=== PATIENT | female | born 1980 | race American Indian/Alaskan Native ===

== ENCOUNTER 2016-06-11 10:07 | Emergency (ER) | payer MEDICAID, OTHER ==
[2016-06-11 10:18] VITALS: O2SAT 100
[2016-06-11] MEDS ORDERED: Sodium Chloride 0.9% 1,000 ML ONE ×2 (10:20→12:33)
--- NOTE | 2016-06-11 10:24 | C.PDOC ---
History Of Present Illness 35 y/o female presents to the ED for evaluation of diffuse abdominal pain and vomiting since the middle of the night. Family member at bedside reports "we eat a lot of fast food last night". Patient also admits to drinking alcohol, but not excessive. She reports some chills but denies fevers, diarrhea, back pain, urinary symptoms, or other complaints. Note that the patient's last normal menstrual period was 3 weeks prior. Chief Complaint (Nursing): Abdominal Pain History Per: Patient, Family History/Exam Limitations: no limitations Onset/Duration Of Symptoms: Hrs, Gradual, Persistent Current Symptoms Are (Timing): Still Present Location Of Pain/Discomfort: Diffuse Radiation Of Pain To:: None Associated Symptoms: Chills, Vomiting Recent travel outside of the [place]: No Past Medical History Reviewed: Historical Data, Nursing Documentation, Vital Signs Vital Signs: Last Vital Signs Temp 97.5 F L 06/11/16 13:54 Pulse 59 L 06/11/16 13:54 Resp 18 06/11/16 13:54 BP 133/82 06/11/16 13:54 Pulse Ox 100 06/11/16 13:54 - Medical History PMH: HTN Surgical History: No Surg Hx Family History: States: Unknown Family Hx - Social History Hx Tobacco Use: Yes (heavy smoker) Hx Alcohol Use: Yes Hx Substance Use: No Review Of Systems Constitutional: Positive for: Chills. Negative for: Fever Gastrointestinal: Positive for: Vomiting, Abdominal Pain. Negative for: Diarrhea Genitourinary: Negative for: Dysuria, Hematuria Musculoskeletal: Negative for: Back Pain Physical Exam - Physical Exam Appears: Non-toxic, No Acute Distress, Other (uncomfortable) Skin: Normal Color, Warm, Dry Head: Atraumatic, Normacephalic Eye(s): bilateral: Normal Inspection, PERRL Nose: Normal Neck: Normal ROM, Supple Chest: Symmetrical Cardiovascular: Rhythm Regular Respiratory: Normal Breath Sounds, No Rales, No Rhonchi, No Wheezing Gastrointestinal/Abdominal: Soft, Tenderness (mild epigastric), No Guarding, No Rebound Back: Normal Inspection, No CVA Tenderness Extremity: Normal ROM, No Swelling Neurological/Psych: Oriented x3, Normal Speech Gait: Steady ED Course And Treatment - Laboratory Results Result Diagrams: 06/11/16 10:46 06/11/16 10:46 Lab Interpretation: No Acute Changes O2 Sat by Pulse Oximetry: 100 (ra) Pulse Ox Interpretation: Normal - CT Scan/US Abd/pelvis Other Rad Studies (CT/US): Read By Radiologist, Radiology Report Reviewed CT/US Interpretation: Accession No. : [id number]. Patient Name / ID : FREDO DAI / [id number]. Exam Date : 06/11/2016 12:15:21 ( Approved ) . Study Comment : Sex / Age : F / 35Y. Creator : Nidia Shen MD. Dictator : Nidia Shen MD. Mental Health Aides Teacher : Passenger Interline Clerk : Nidia Shen MD. Approver2 : Report Date : 06/11/2016 12:48:16. My Comment : . PROCEDURE: CT Abdomen and Pelvis with contrast. HISTORY: epigastric abd pain, vomiting, abn labs. COMPARISON: None available. TECHNIQUE: Contrast dose: 100 mL Visipaque. Radiation dose: Total exam DLP = 476.14 mGy- cm. FINDINGS: LOWER THORAX: No visible consolidation, pleural effusion, or pneumothorax. Small hiatal hernia/distal esophageal wall thickening. LIVER: Unremarkable. GALLBLADDER AND BILE DUCTS: Unremarkable. PANCREAS: Unremarkable. SPLEEN: Unremarkable. ADRENALS: Unremarkable. KIDNEYS AND URETERS: The kidneys enhance symmetrically. No evidence of hydronephrosis or obstructing calculus. VASCULATURE: No aortic aneurysm. BOWEL: The stomach is nondistended. Lack of oral contrast limits evaluation for bowel pathology. Bowel loops appear within normal limits of caliber without evidence of obstruction. APPENDIX: The appendix appears within normal limits of caliber. No secondary signs of acute appendicitis. PERITONEUM: No significant free fluid. No definite free air. LYMPH NODES: No bulky lymphadenopathy identified. BLADDER: Unremarkable. REPRODUCTIVE: The uterus is present. BONES: Degenerative changes of the spine. OTHER FINDINGS: Small fat containing umbilical hernia. IMPRESSION: Small hiatal hernia/distal esophageal wall thickening. Small fat containing umbilical hernia. Medical Decision Making Medical Decision Making: Impression: abdominal pain and vomiting since last night. Plan: * Blood Work * Urinalysis * Urine HCG * Pepcid IVP, Toradol IVP, Zofran IVP, IV Fluids Progress: Labs reviewed and UA reviewed. Lipase was mildly elevated and given patient has epigastric tenderness and vomiting, CT ordered. patient reevaluated and continues to feel nausea, pain improved, Reglan was ordered. CT reviewed and read by Dr Cantrell showing Small hiatal hernia/distal esophageal wall thickening. Small fat containing umbilical hernia. Upon reevaluation patient is now feeling better and was able to tolerate PO. She has no fever and stable vital signs. Discussed results with patient, and copy of report was provided. Patient feels comfortable going home and will be discharged. Patient given follow up instructions. Instructed to return to ER if symptoms worsen or new symptoms arise. Disposition Counseled Patient/Family Regarding: Diagnosis, Need For Followup, Rx Given - Disposition Referrals: [facility] [Outside] [facility] [Outside] Disposition: HOME/ ROUTINE Disposition Time: 13:48 Condition: STABLE Additional Instructions: Follow up with your primary medical doctor or clinic in 2-5 days for further evaluation. Take medications as prescribed. Return to the emergency department at any time if symptoms persist or worsen. Prescriptions: Omeprazole 20 mg PO DAILY #30 capsule. Ondansetron ODT [Zofran ODT] 1 odt PO BID PRN #6 odt PRN Reason: Nausea/Vomiting Instructions: Acute Nausea and Vomiting (ED), Umbilical Hernia (ED) - POA Present On Arrival: None - Clinical Impression Clinical Impression: Vomiting, Alcoholic gastritis - PA / KILN REMOVER / Resident Statement MD/DO has reviewed & agrees with the documentation as recorded. - Scribe Statement The provider has reviewed the documentation as recorded by the Scribe (Anusha Cordoba) All medical record entries made by the Scribe were at my direction and personally dictated by me. I have reviewed the chart and agree that the record accurately reflects my personal performance of the history, physical exam, medical decision making, and the department course for this patient. I have also personally directed, reviewed, and agree with the discharge instructions and disposition.
[2016-06-11] MEDS ORDERED: Sodium Chloride 0.9% 1,000 ML IV ONE (10:30)
[2016-06-11 10:50] LABS: BASO # 0.1 K/uL (0.0-0.2); BASO % 0.6 % (0.0-2.0); EOS % 0.2 % (0.0-4.0); HEMATOCRIT 37.2 % (34.0-47.0); LYMPH # 1.5 K/uL (1.0-4.3); LYMPH % 17.8 % (20.0-40.0); MEAN CELL VOLUME 96.6 fL (81.0-99.0); MEAN CORPUSCULAR HEMOGLOBIN 32.9 pg (27.0-31.0); MEAN PLATELET VOLUME 9.3 fL (7.2-11.7); MONO # 0.3 K/uL (0.0-0.8); MONO % 3.5 % (0.0-10.0); NRBC % 0.1 % (0.0-2.0); RED CELL DISTRIBUTION WIDTH 13.4 % (11.5-14.5); WHITE BLOOD COUNT 8.6 K/uL (4.8-10.8)
[2016-06-11 11:03] LABS: RBC URINE 1 /hpf (0-3); URINE BILIRUBIN NEGATIVE (NEGATIVE); URINE BLOOD NEGATIVE (NEGATIVE); URINE COLOR Yellow (YELLOW); URINE GLUCOSE (UA) NORMAL (Normal); URINE KETONE NEGATIVE (NEGATIVE); URINE LEUKOCYTE ESTERASE NEG Leu/uL (Negative); URINE PROTEIN 1+ mg/dL (NEGATIVE); URINE UROBILINOGEN NORMAL mg/dL (0.2-1.0); WBC URINE 1 /hpf (0-5)
[2016-06-11 11:07] LABS: CHLORIDE 99 mmol/L (98-107)
[2016-06-11 11:08] LABS: POTASSIUM 3.6 mmol/L (3.6-5.2); SODIUM 139 mmol/L (132-148)
[2016-06-11 11:10] LABS: ALB/GLOB RATIO 0.9 (1.0-2.1); ALKALINE PHOSPHATASE 61 U/L (38-126); ALT/SGPT 34 U/L (9-52); AST/SGOT 28 U/L (14-36); BILIRUBIN,TOTAL 0.5 mg/dL (0.2-1.3); BLOOD UREA NITROGEN 12 mg/dL (7-17); CARBON DIOXIDE 25 mmol/L (22-30); GFR AFRICAN-AMERICAN > 60; TOTAL PROTEIN 8.8 g/dL (6.3-8.3)
[2016-06-11 11:11] LABS: CALCIUM 8.8 mg/dl (8.6-10.4); GLUCOSE,RANDOM 142 mg/dL (65-105)
[2016-06-11] MEDS ORDERED: Iodixanol 320 MG/ML 100 ML BOTTLE IV ONE (11:45)
[2016-06-11] MEDS ORDERED: Sodium Chloride 0.9% 500 ML IV ONE (12:40)
--- NOTE | 2016-06-11 12:50 | CT ---
PROCEDURE: CT Abdomen and Pelvis with contrast HISTORY: epigastric abd pain, vomiting, abn labs COMPARISON: None available TECHNIQUE: Contrast dose: 100 mL Visipaque Radiation dose: Total exam DLP = 476.14 mGy-cm. FINDINGS: LOWER THORAX: No visible consolidation, pleural effusion, or pneumothorax. Small hiatal hernia/distal esophageal wall thickening. LIVER: Unremarkable. GALLBLADDER AND BILE DUCTS: Unremarkable. PANCREAS: Unremarkable. SPLEEN: Unremarkable. ADRENALS: Unremarkable. KIDNEYS AND URETERS: The kidneys enhance symmetrically. No evidence of hydronephrosis or obstructing calculus. VASCULATURE: No aortic aneurysm. BOWEL: The stomach is nondistended. Lack of oral contrast limits evaluation for bowel pathology. Bowel loops appear within normal limits of caliber without evidence of obstruction. APPENDIX: The appendix appears within normal limits of caliber. No secondary signs of acute appendicitis. PERITONEUM: No significant free fluid. No definite free air. LYMPH NODES: No bulky lymphadenopathy identified. BLADDER: Unremarkable. REPRODUCTIVE: The uterus is present. BONES: Degenerative changes of the spine. OTHER FINDINGS: Small fat containing umbilical hernia. IMPRESSION: Small hiatal hernia/distal esophageal wall thickening. Small fat containing umbilical hernia.
[2016-06-11 13:54] VITALS: BP 133/82; PULSE 59; RESP 18; TEMP 97.5
== END 2016-06-11 13:57 | disposition home or self-care (01) ==
LOC: C.ER 10:07
DX: K29.20 Alcoholic gastritis without bleeding (principal); R11.10 Vomiting, unspecified
CPT/HCPCS: 74177; 80053; 81001; 83690; 84703; 85025; 96361; 96374; 96375; 99284; J1885; J2405; J2765; J7040; Q9967

== ENCOUNTER 2016-06-12 07:16 | Inpatient (IN) | payer MEDICAID, OTHER ==
[2016-06-12] MEDS ORDERED: Aluminum Hydroxide/Magnesium Hydroxide Susp (30 mL) PO STA (07:30)
[2016-06-12] MEDS ORDERED: Belladonna-Phenobarbital PO STA (07:30)
[2016-06-12] MEDS ORDERED: Lidocaine 2% Viscous 100 ml PO STA (07:30)
[2016-06-12] MEDS ORDERED: Sodium Chloride 0.9% 1,000 ML IV ONE ×2 (07:30→10:57)
--- NOTE | 2016-06-12 07:33 | C.PDOC ---
History Of Present Illness 35 y/o female, whose PMHx includes hypertension, presents to the ED complaining of "cramping" abdominal pain with multiple episodes of vomiting for 2 days. She reports that her vomit is "yellowish" and she has started to notice some " specks of blood." Note that the patient was evaluated in the [facility] ED yesterday for same and discharged after labs and CT. Patient reports that she inititally felt better after recieving medication in the ED yesterday but her symptoms returned last night. She denies any diarrhea, fever, back pain, urinary symptoms, or other complaints. Time Seen by Provider: 06/12/16 07:24 Chief Complaint (Nursing): GI Problem History Per: Patient History/Exam Limitations: no limitations Onset/Duration Of Symptoms: Days (2), Intermittent Episodes, Gradual, Persistent Current Symptoms Are (Timing): Still Present Location Of Pain/Discomfort: Diffuse Radiation Of Pain To:: None Quality Of Discomfort: Cramping, "Pain" Associated Symptoms: Vomiting Recent travel outside of the [place]: No Past Medical History Reviewed: Historical Data, Nursing Documentation, Vital Signs Vital Signs: Last Vital Signs Temp 98.5 F 06/12/16 07:19 Pulse 66 06/12/16 07:19 Resp 22 06/12/16 07:19 BP 160/95 H 06/12/16 07:19 Pulse Ox 95 06/12/16 10:35 - Medical History PMH: HTN Surgical History: No Surg Hx Family History: States: Unknown Family Hx - Social History Hx Tobacco Use: Yes (heavy smoker) Hx Alcohol Use: Yes Hx Substance Use: No Review Of Systems Except As Marked, All Systems Reviewed And Found Negative. Constitutional: Negative for: Fever Gastrointestinal: Positive for: Vomiting, Abdominal Pain. Negative for: Diarrhea Genitourinary: Negative for: Dysuria, Hematuria Musculoskeletal: Negative for: Back Pain Physical Exam - Physical Exam Appears: Non-toxic, No Acute Distress, Other (uncomfortable, moaning) Skin: Normal Color, Warm, Dry Head: Atraumatic, Normacephalic Eye(s): bilateral: Normal Inspection, PERRL Oral Mucosa: Moist Neck: Normal ROM, Supple Chest: Symmetrical Cardiovascular: Rhythm Regular Respiratory: Normal Breath Sounds, No Rales, No Rhonchi, No Wheezing Gastrointestinal/Abdominal: Soft, Tenderness (diffuse), No Guarding, No Rebound Back: Normal Inspection, No CVA Tenderness Extremity: Normal ROM, No Swelling Neurological/Psych: Oriented x3, Normal Speech, Normal Cognition ED Course And Treatment - Laboratory Results Result Diagrams: 06/12/16 07:38 06/12/16 07:38 O2 Sat by Pulse Oximetry: 95 (ra) Pulse Ox Interpretation: Normal - CT Scan/US Ultrasound Other Rad Studies (CT/US): Read By Radiologist (Nidia Shen MD), Radiology Report Reviewed CT/US Interpretation: FINDINGS: LIVER: Measures 18.5 cm in length. Echogenic liver may be seen in setting of hepatic parenchymal disease or fatty infiltration. No focal mass identified. The main portal vein appears patent with normal directional flow. No intrahepatic bile duct dilatation. GALLBLADDER : No gallstones. No gallbladder wall thickening or pericholecystic edema. Negative sonographic Romero's sign as assessed by the beam builder. COMMON BILE DUCT: Measures 3 mm. PANCREAS: Not well-visualized. RIGHT KIDNEY: Measures 13.2 x 4.6 x 5.5 cm. No obstructing calculus or hydronephrosis identified. AORTA: Limited visualization appears grossly unremarkable. IVC: Limited visualization appears grossly unremarkable. OTHER FINDINGS: None . IMPRESSION : Echogenic liver may be seen in setting of hepatic parenchymal disease or fatty infiltration. Medical Decision Making Medical Decision Making: Impression: diffuse abdominal cramping with vomiting. Patient evaluated in [facility] ED for same yesterday; prior records reviewed. Differential diagnosis includes but not limited to: pancreatitis, gallstones, gastritis Plan: * Blood Work * Urinalysis * Ultrasound * PO, Pepcid IVP, Zofran IVP, Maalox PO, Lidocaine 2% Viscous PO, IV Fluids * Patient improved slighly, was able to sleep, but now with refractory vomiting once again. Plan to hospitalize the patient for further evaluation and management. Disposition Discussed With : Gurjit Keenan Doctor Will See Patient In The: Hospital Counseled Patient/Family Regarding: Studies Performed, Diagnosis - Disposition Disposition: HOSPITALIZED Disposition Time: 11:26 Condition: GUARDED - Clinical Impression Clinical Impression: Vomiting - Scribe Statement The provider has reviewed the documentation as recorded by the Scribe (Anusha Cordoba) Provider Attestation: All medical record entries made by the Scribe were at my direction and personally dictated by me. I have reviewed the chart and agree that the record accurately reflects my personal performance of the history, physical exam, medical decision making, and the department course for this patient. I have also personally directed, reviewed, and agree with the discharge instructions and disposition. Decision To Admit - Pt Status Changed To: Hospital Disposition Of: Observation - . Bed Request Type: Regular Patient Diagnosis: Vomiting
[2016-06-12] MEDS ORDERED: Aluminum Hydroxide/Magnesium Hydroxide Susp (30 mL) ONE (07:40)
[2016-06-12] MEDS ORDERED: Sodium Chloride 0.9% 1,000 ML ONE ×3 (07:40→13:15)
[2016-06-12 07:43] LABS: BASO # 0.1 K/uL (0.0-0.2); BASO % 0.7 % (0.0-2.0); EOS % 0.1 % (0.0-4.0); HEMATOCRIT 37.3 % (34.0-47.0); LYMPH # 1.1 K/uL (1.0-4.3); LYMPH % 14.1 % (20.0-40.0); MEAN CELL VOLUME 96.8 fL (81.0-99.0); MEAN CORPUSCULAR HEMOGLOBIN 32.8 pg (27.0-31.0); MEAN CORPUSCULAR HGB CONC 33.9 g/dL (33.0-37.0); MEAN PLATELET VOLUME 9.7 fL (7.2-11.7); MONO # 0.5 K/uL (0.0-0.8); MONO % 6.3 % (0.0-10.0); RED CELL DISTRIBUTION WIDTH 13.3 % (11.5-14.5)
[2016-06-12 07:49] LABS: CHLORIDE 95 mmol/L (98-107)
[2016-06-12 07:50] LABS: POTASSIUM 3.4 mmol/L (3.6-5.2); SODIUM 138 mmol/L (132-148)
[2016-06-12 07:52] LABS: ALB/GLOB RATIO 0.9 (1.0-2.1); ALKALINE PHOSPHATASE 63 U/L (38-126); AST/SGOT 23 U/L (14-36); BILIRUBIN,TOTAL 0.5 mg/dL (0.2-1.3); BLOOD UREA NITROGEN 12 mg/dL (7-17); CARBON DIOXIDE 25 mmol/L (22-30); GFR AFRICAN-AMERICAN > 60; TOTAL PROTEIN 9.2 g/dL (6.3-8.3)
[2016-06-12 07:53] LABS: ALT/SGPT 19 U/L (9-52); GLUCOSE,RANDOM 124 mg/dL (65-105)
[2016-06-12 08:19] LABS: RBC URINE 2 /hpf (0-3); URINE BILIRUBIN NEGATIVE (NEGATIVE); URINE BLOOD NEGATIVE (NEGATIVE); URINE COLOR Yellow (YELLOW); URINE GLUCOSE (UA) NORMAL (Normal); URINE KETONE 1+ mg/dL (NEGATIVE); URINE LEUKOCYTE ESTERASE NEG Leu/uL (Negative); URINE PROTEIN 1+ mg/dL (NEGATIVE); URINE UROBILINOGEN NORMAL mg/dL (0.2-1.0); WBC URINE < 1 /hpf (0-5)
--- NOTE | 2016-06-12 08:24 | US ---
HISTORY: abd pain COMPARISON: CT abdomen and pelvis with IV contrast performed 06/11/16 TECHNIQUE: Sonographic evaluation of the right upper quadrant of the abdomen. FINDINGS: LIVER: Measures 18.5 cm in length. Echogenic liver may be seen in setting of hepatic parenchymal disease or fatty infiltration. No focal mass identified. The main portal vein appears patent with normal directional flow. No intrahepatic bile duct dilatation. GALLBLADDER: No gallstones. No gallbladder wall thickening or pericholecystic edema. Negative sonographic Romero's sign as assessed by the cardiopulmonary technician. COMMON BILE DUCT: Measures 3 mm. PANCREAS: Not well-visualized. RIGHT KIDNEY: Measures 13.2 x 4.6 x 5.5 cm. No obstructing calculus or hydronephrosis identified. AORTA: Limited visualization appears grossly unremarkable. IVC: Limited visualization appears grossly unremarkable. OTHER FINDINGS: None . IMPRESSION: Echogenic liver may be seen in setting of hepatic parenchymal disease or fatty infiltration.
[2016-06-12 11:38] LABS: ALCOHOL SERUM < 10 mg/dl (0-10)
--- NOTE | 2016-06-12 12:22 | CP.PCM.HP ---
<Garret Menon - Last Filed: 06/12/16 16:18> History of Present Illness - History of Present Illness History of Present Illness: CC: [place] and Vomiting HPI: Patient is a 35 year old female with no significant medical history is coming to the hospital after vomiting several times for the past 2 days. She was seen in the ED yesterday and discharged home. Patient reports her symptoms did not improve. She has not been able to eat or drink anything for the past few days. She reports feeling hot and cold sensation as well as generalized weakness. Patient denies sick contacts or any recent travel. She does report eating some spicy food from her neighbor about 3 days ago and started vomiting the next morning. She denies weight loss, chest pain, shortness of breath, cough, diarrhea, constipation, dysuria. PMH: see above PSH: denies FH: Mother heart disease SH: smokes several cigarettes a day, snorts cocaine, smokes marjiuana several times a day, social etoh use allergies: NKDA PMD: none Present on Admission - Present on Admission Any Indicators Present on Admission: No History of DVT/PE: No History of Uncontrolled Diabetes: No Urinary Catheter: No Decubitus Ulcer Present: No Review of Systems - Review of Systems All systems: reviewed and no additional remarkable complaints except - Constitutional Constitutional: Chills, Fever, Malaise, Weakness. absent: Headache - EENT Eyes: absent: Change in Vision Ears: Dizziness Nose/Mouth/Throat: Other - Cardiovascular Cardiovascular: Palpitations. absent: Chest Pain, Edema - Respiratory Respiratory: absent: Cough, Dyspnea - Gastrointestinal Gastrointestinal: Abdominal Pain, Cramping, Nausea, Vomiting. absent: Constipation, Diarrhea, Hematemesis - Genitourinary Genitourinary: absent: Dysuria - Musculoskeletal Musculoskeletal: absent: Numbness, Tingling - Neurological Neurological: Dizziness, Weakness. absent: Headaches - Psychiatric Psychiatric: absent: Anxiety - Endocrine Endocrine: Fatigue, Palpitations Past Patient History - Past Social History Smoking Status: Heavy Smoker > 10 Cigarettes Daily - CARDIAC Hx Hypertension: Yes - PSYCHIATRIC Hx Substance Use: No Meds Allergies/Adverse Reactions: Allergies Allergy/AdvReac Type Severity Reaction Status Date / Time No Known Allergies Allergy Verified 06/12/16 07:22 Physical Exam - Constitutional Appears: Non-toxic, No Acute Distress, Other (uncomfortable) - Head Exam Head Exam: ATRAUMATIC, NORMAL INSPECTION, NORMOCEPHALIC - Eye Exam Eye Exam: Normal appearance, PERRL. absent: Scleral icterus Pupil Exam: NORMAL ACCOMODATION - ENT Exam ENT Exam: Normal Exam - Respiratory Exam Respiratory Exam: Clear to Auscultation Bilateral. absent: Rhonchi, Wheezes - Cardiovascular Exam Cardiovascular Exam: REGULAR RHYTHM, RRR, +S1, +S2. absent: Gallop, Rubs - GI/Abdominal Exam GI & Abdominal Exam: Normal Bowel Sounds, Soft, Tenderness (diffuse). absent: Distended, Firm, Guarding Additional comments: diffuse - Extremities Exam Extremities exam: Positive for: normal inspection. Negative for: pedal edema - Back Exam Back exam: NORMAL INSPECTION - Neurological Exam Neurological exam: Alert - Psychiatric Exam Psychiatric exam: Normal Affect, Normal Mood - Skin Skin Exam: Dry, Normal Color, Warm Results - Vital Signs Recent Vital Signs: Last Vital Signs Temp 98.5 F 06/12/16 07:19 Pulse 66 06/12/16 07:19 Resp 22 06/12/16 07:19 BP 160/95 H 06/12/16 07:19 Pulse Ox 95 06/12/16 11:26 - Labs Result Diagrams: 06/12/16 07:38 06/12/16 07:38 Assessment & Plan (1) Hyperemesis Assessment and Plan: Patient given IV fluids, Zofran, Pecid, and Maalox in the Ed. She is admitted to regular/inpatient floor. We will keep her NPO for now, start clear liquid diet in the morning. Follow up cbc, cmp, mag, phos, hepatitis panel. Abdominal US shows evidence of liver disease. Started IV fluids D5 NS 70 cc/hr with 40meq of potassium Status: Acute (2) Hypokalemia Assessment and Plan: Potassium is 3.4, given 40meq with bag of D5 Normal saline. Status: Acute (3) Prophylactic measure Assessment and Plan: Protonix 40mg IVP Lovenox SCDs Status: Acute <Gurjit Keenan - Last Filed: 06/13/16 12:29> Results - Vital Signs Recent Vital Signs: Last Vital Signs Temp 97.9 F 06/13/16 08:40 Pulse 60 06/13/16 08:40 Resp 20 06/13/16 08:40 BP 166/108 H 06/13/16 08:40 Pulse Ox 100 06/13/16 08:40 - Labs Result Diagrams: 06/13/16 07:04 06/13/16 07:04 Labs: Laboratory Results - last 24 hr 06/13/16 06/13/16 07:04 07:22 WBC 6.9 RBC 3.88 Hgb 12.7 Hct 37.9 MCV 97.7 MCH 32.8 H MCHC 33.6 RDW 13.3 Plt Count 180 MPV 10.0 Neut % (Auto) 69.0 Lymph % (Auto) 24.6 Kidder % (Auto) 6.1 Eos % (Auto) 0.0 Baso % (Auto) 0.3 Neut # 4.8 Lymph # 1.7 Kidder # 0.4 Eos # 0.0 Baso # 0.0 Sodium 134 Potassium 3.4 L Chloride 94 L Carbon Dioxide 26 Anion Gap 17 BUN 6 L Creatinine 0.6 L Est GFR ( Amer) > 60 Est GFR (Non-Af Amer) > 60 POC Glucose (mg/dL) 121 H Random Glucose 122 H Calcium 8.8 Phosphorus 2.7 Magnesium 2.0 Total Bilirubin 0.4 AST 24 ALT 15 Alkaline Phosphatase 57 Total Protein 8.7 H Albumin 4.2 Globulin 4.4 H Albumin/Globulin Ratio 1.0 Hepatitis A IgM Ab Negative Hep Bs Antigen Negative Hep B Core IgM Ab Negative Hepatitis C Antibody Negative
[2016-06-12] MEDS ORDERED: Sodium Chloride 0.9% 1,000 ML IV SCH (12:45)
[2016-06-12] MEDS ORDERED: Potassium Chloride 40 MEQ in Dextrose 5%/0.9% NS 1,000 ML IV SCH (13:30)
[2016-06-12] MEDS: Potassium Chloride 40 MEQ in Dextrose 5%/0.9% NS 1,000 ML IV SCH (14:08)
[2016-06-12 22:44] VITALS: RESP 20
[2016-06-13] MEDS: Potassium Chloride 40 MEQ in Dextrose 5%/0.9% NS 1,000 ML IV SCH ×3 (04:30→21:40)
[2016-06-13 07:22] LABS: BASO % 0.3 % (0.0-2.0); HEMATOCRIT 37.9 % (34.0-47.0); LYMPH # 1.7 K/uL (1.0-4.3); LYMPH % 24.6 % (20.0-40.0); MEAN CELL VOLUME 97.7 fL (81.0-99.0); MEAN CORPUSCULAR HEMOGLOBIN 32.8 pg (27.0-31.0); MEAN CORPUSCULAR HGB CONC 33.6 g/dL (33.0-37.0); MONO # 0.4 K/uL (0.0-0.8); MONO % 6.1 % (0.0-10.0); NRBC % 0.1 % (0.0-2.0); RED CELL DISTRIBUTION WIDTH 13.3 % (11.5-14.5); WHITE BLOOD COUNT 6.9 K/uL (4.8-10.8)
[2016-06-13 07:33] LABS: CHLORIDE 94 mmol/L (98-107); SODIUM 134 mmol/L (132-148)
[2016-06-13 07:34] LABS: POTASSIUM 3.4 mmol/L (3.6-5.2)
[2016-06-13 07:35] LABS: GFR AFRICAN-AMERICAN > 60
[2016-06-13 07:36] LABS: ALKALINE PHOSPHATASE 57 U/L (38-126); ALT/SGPT 15 U/L (9-52); AST/SGOT 24 U/L (14-36); BILIRUBIN,TOTAL 0.4 mg/dL (0.2-1.3); BLOOD UREA NITROGEN 6 mg/dL (7-17); CALCIUM 8.8 mg/dl (8.6-10.4); CARBON DIOXIDE 26 mmol/L (22-30); GLUCOSE,RANDOM 122 mg/dL (65-105); PHOSPHOROUS 2.7 mg/dL (2.5-4.5); TOTAL PROTEIN 8.7 g/dL (6.3-8.3)
[2016-06-13] MEDS: Enoxaparin 40 mg Syringe SC SCH (10:26)
[2016-06-13] MEDS: Potassium Chloride 20 mEq ER Tab PO SCH (11:57)
--- NOTE | 2016-06-13 22:20 | CP.PCM.PN ---
Subjective - Date & Time of Evaluation Date of Evaluation: 06/13/16 Time of Evaluation: 10:50 - Subjective Subjective: Patient is a 35 year old female with no significant medical history is coming to the hospital after vomiting several times for the past 2 days. Today, she complains that she vomiting twice today, dizziness, and weakness. She denies changes in vision, chest pain, difficulty breathing, or dysuria. Objective - Vital Signs/Intake and Output Vital Signs (last 24 hours): Temp Pulse Resp BP Pulse Ox 97.9 F 60 20 166/108 H 100 06/13/16 08:40 06/13/16 08:40 06/13/16 08:40 06/13/16 08:40 06/13/16 08:40 Intake and Output: 06/13/16 06/14/16 18:59 06:59 Intake Total 660 Balance 660 - Medications Medications: Current Medications Enoxaparin Sodium (Lovenox) 40 mg SC DAILY FOR[facility]LY [facility], [facility] Last Admin: 06/13/16 10:26 Dose: 40 mg Potassium Chloride 40 meq/ (Dextrose/Sodium Chloride) 1,020 mls @ 70 mls/hr IV .[id number] [facility], [facility]1983 Last Admin: 06/13/16 21:40 Dose: 70 mls/hr Metoclopramide HCl (Reglan) 10 mg IVP ACHS [facility], [facility]1983 Last Admin: 06/13/16 21:37 Dose: 10 mg Ondansetron HCl (Zofran Inj) 4 mg IVP Q6 PRN PRN Reason: Nausea/Vomiting Last Admin: 06/13/16 10:26 Dose: 4 mg Pantoprazole Sodium (Protonix Inj) 40 mg IVP DAILY [facility], [facility]1983 Last Admin: 06/13/16 10:26 Dose: 40 mg Potassium Chloride (K-Dur 20 Meq Er Tab) 20 meq PO DAILY [facility] Last Admin: 06/13/16 11:57 Dose: 20 meq - Labs Labs: 06/13/16 07:04 06/13/16 07:04 - Constitutional Appears: Non-toxic, No Acute Distress - Head Exam Head Exam: ATRAUMATIC, NORMOCEPHALIC - Eye Exam Eye Exam: EOMI - ENT Exam ENT Exam: Mucous Membranes Moist - Respiratory Exam Respiratory Exam: Clear to Ausculation Bilateral, NORMAL BREATHING PATTERN - Cardiovascular Exam Cardiovascular Exam: REGULAR RHYTHM, RRR, +S1, +S2. absent: JVD - GI/Abdominal Exam GI & Abdominal Exam: Soft, Tenderness, Normal Bowel Sounds - Neurological Exam Neurological Exam: Alert, Awake, Oriented x3 - Psychiatric Exam Psychiatric exam: Normal Affect, Normal Mood - Skin Skin Exam: Dry, Intact, Normal Color, Warm Assessment and Plan - Assessment and Plan (Free Text) Plan: (1) Hyperemesis Assessment and Plan: clear liquid diet cbc, cmp, mag, phos, hepatitis panel - negative Lipase normal Abdominal US shows evidence of liver disease. UDS + for cannibus and cocaine BNP slightly elevated at 473 Reglan before meals Zofran prn (2) Hypokalemia Assessment and Plan: 02/12 Potassium is 3.4, given 40meq with bag of D5 Normal saline. 02/13 Potassium is 3.4, given 20meq K-dur 20 (3) Prophylactic measure Assessment and Plan: Protonix 40mg IVP Lovenox SCDs
[2016-06-14] MEDS: Enoxaparin 40 mg Syringe SC SCH (09:44)
[2016-06-14] MEDS: Potassium Chloride 20 mEq ER Tab PO SCH (09:44)
[2016-06-14] MEDS: Potassium Chloride 40 MEQ in Dextrose 5%/0.9% NS 1,000 ML IV SCH ×3 (09:50→21:27)
[2016-06-14 13:36] LABS: BASO % 0.4 % (0.0-2.0); HEMATOCRIT 45.2 % (34.0-47.0); LYMPH % 25.2 % (20.0-40.0); MEAN CELL VOLUME 96.5 fL (81.0-99.0); MEAN CORPUSCULAR HEMOGLOBIN 32.5 pg (27.0-31.0); MEAN CORPUSCULAR HGB CONC 33.7 g/dL (33.0-37.0); MONO # 0.7 K/uL (0.0-0.8); MONO % 8.1 % (0.0-10.0); NRBC % 0.1 % (0.0-2.0); RED CELL DISTRIBUTION WIDTH 13.3 % (11.5-14.5); WHITE BLOOD COUNT 8.1 K/uL (4.8-10.8)
[2016-06-14 13:45] LABS: CHLORIDE 93 mmol/L (98-107); POTASSIUM 3.5 mmol/L (3.6-5.2); SODIUM 134 mmol/L (132-148)
[2016-06-14 13:47] LABS: GFR AFRICAN-AMERICAN > 60
[2016-06-14 13:48] LABS: ALB/GLOB RATIO 0.9 (1.0-2.1); ALKALINE PHOSPHATASE 63 U/L (38-126); ALT/SGPT 16 U/L (9-52); AST/SGOT 20 U/L (14-36); BILIRUBIN,TOTAL 0.5 mg/dL (0.2-1.3); BLOOD UREA NITROGEN 7 mg/dL (7-17); CARBON DIOXIDE 26 mmol/L (22-30); GLUCOSE,RANDOM 103 mg/dL (65-105); MAGNESIUM 2.1 mg/dL (1.6-2.3); PHOSPHOROUS 2.6 mg/dL (2.5-4.5); TOTAL PROTEIN 9.2 g/dL (6.3-8.3)
--- NOTE | 2016-06-14 22:08 | CP.PCM.PN ---
Subjective - Date & Time of Evaluation Date of Evaluation: 06/14/16 Time of Evaluation: 07:30 - Subjective Subjective: Patient is a 35 year old female with no significant medical history is coming to the hospital after vomiting several times for the past 2 days. Today, she complains that she vomiting twice today, increased belching, constipation, and weakness. She also had an upset stomach after taking Zofran. She denies changes in vision, chest pain, difficulty breathing, or dysuria. Objective - Vital Signs/Intake and Output Vital Signs (last 24 hours): Temp Pulse Resp BP Pulse Ox 98.7 F 96 H 20 154/96 H 97 06/14/16 16:00 06/14/16 16:00 06/14/16 16:00 06/14/16 16:00 06/14/16 16:00 Intake and Output: 06/14/16 06/15/16 18:59 06:59 Intake Total 760 Balance 760 - Medications Medications: Current Medications Enoxaparin Sodium (Lovenox) 40 mg SC DAILY [facility] Last Admin: 06/14/16 09:44 Dose: 40 mg Potassium Chloride 40 meq/ (Dextrose/Sodium Chloride) 1,020 mls @ 125 mls/hr IV .Q8H10M [facility] Last Admin: 06/14/16 21:27 Dose: 125 mls/hr Metoclopramide HCl (Reglan) 10 mg IVP ACHS [facility] Last Admin: 06/14/16 21:44 Dose: 10 mg Ondansetron HCl (Zofran Inj) 4 mg IVP Q6 PRN PRN Reason: Nausea/Vomiting Last Admin: 06/14/16 19:35 Dose: 4 mg Pantoprazole Sodium (Protonix Inj) 40 mg IVP DAILY [facility] Last Admin: 06/14/16 09:44 Dose: 40 mg - Labs Labs: 06/14/16 13:29 06/14/16 13:29 - Constitutional Appears: Non-toxic, No Acute Distress - Head Exam Head Exam: ATRAUMATIC, NORMOCEPHALIC - Eye Exam Eye Exam: EOMI - ENT Exam ENT Exam: Mucous Membranes Moist, Normal Exam - Neck Exam Neck Exam: Normal Inspection - Respiratory Exam Respiratory Exam: Clear to Ausculation Bilateral, NORMAL BREATHING PATTERN - Cardiovascular Exam Cardiovascular Exam: REGULAR RHYTHM, RRR, +S1, +S2. absent: JVD - GI/Abdominal Exam GI & Abdominal Exam: Soft, Tenderness, Normal Bowel Sounds - Neurological Exam Neurological Exam: Alert, Awake, Oriented x3 - Psychiatric Exam Psychiatric exam: Normal Affect, Normal Mood - Skin Skin Exam: Dry, Intact, Normal Color, Warm Assessment and Plan - Assessment and Plan (Free Text) Plan: (1) Hyperemesis Assessment and Plan: clear liquid diet cbc, cmp, mag, phos, hepatitis panel - negative Lipase normal Abdominal US shows evidence of liver disease. UDS + for cannibus and cocaine BNP slightly elevated at 473 Reglan before meals Zofran prn (2) Hypokalemia Assessment and Plan: 02/12 Potassium is 3.4, given 40meq with bag of D5 Normal saline. 02/13 Potassium is 3.4, given 20meq K-dur 20 02/14 Potassium is 3.5 (3) Hypertension start on HERBERTH/ARB (4) Prophylactic measure Assessment and Plan: Protonix 40mg IVP Lovenox SCDs
[2016-06-15] MEDS: Potassium Chloride 40 MEQ in Dextrose 5%/0.9% NS 1,000 ML IV SCH (05:25)
[2016-06-15 08:20] VITALS: PULSE 101; TEMP 98.5
[2016-06-15] MEDS ORDERED: Potassium Chloride 20 mEq/15 ml LIQ UD PO ONE (10:08)
[2016-06-15] MEDS: Enoxaparin 40 mg Syringe SC SCH (10:32)
[2016-06-15 13:04] VITALS: BP 134/97; O2SAT 99
--- NOTE | 2016-06-15 13:20 | CP.PCM.DIS ---
<Phu Cavanaugh - Last Filed: 06/15/16 13:17> Provider - Provider Date of Admission: 06/14/16 11:21 Attending physician: Gurjit Keenan MD Time Spent in preparation of Discharge (in minutes): 35 Hospital Course - Lab Results Lab Results: Most Recent Lab Values WBC 8.1 K/uL (4.8-10.8) 06/14/16 13:29 RBC 4.68 Mil/uL (3.80-5.20) 06/14/16 13:29 Hgb 15.2 g/dL (11.0-16.0) D 06/14/16 13:29 Hct 45.2 % (34.0-47.0) 06/14/16 13:29 MCV 96.5 fL (81.0-99.0) 06/14/16 13:29 MCH 32.5 pg (27.0-31.0) H 06/14/16 13:29 MCHC 33.7 g/dL (33.0-37.0) 06/14/16 13:29 RDW 13.3 % (11.5-14.5) 06/14/16 13:29 Plt Count 210 K/uL (130-400) 06/14/16 13:29 MPV 10.0 fL (7.2-11.7) 06/14/16 13:29 Neut % (Auto) 66.3 % (50.0-75.0) 06/14/16 13:29 Lymph % (Auto) 25.2 % (20.0-40.0) 06/14/16 13:29 Clinch % (Auto) 8.1 % (0.0-10.0) 06/14/16 13:29 Eos % (Auto) 0.0 % (0.0-4.0) 06/14/16 13:29 Baso % (Auto) 0.4 % (0.0-2.0) 06/14/16 13:29 Neut # 5.4 K/uL (1.8-7.0) 06/14/16 13:29 Lymph # 2.0 K/uL (1.0-4.3) 06/14/16 13:29 Clinch # 0.7 K/uL (0.0-0.8) 06/14/16 13:29 Eos # 0.0 K/uL (0.0-0.7) 06/14/16 13:29 Baso # 0.0 K/uL (0.0-0.2) 06/14/16 13:29 Sodium 134 mmol/L (132-148) 06/14/16 13:29 Potassium 3.5 mmol/L (3.6-5.2) L 06/14/16 13:29 Chloride 93 mmol/L (98-107) L 06/14/16 13:29 Carbon Dioxide 26 mmol/L (22-30) 06/14/16 13:29 Anion Gap 19 (10-20) 06/14/16 13:29 BUN 7 mg/dL (7-17) 06/14/16 13:29 Creatinine 0.7 MG/DL (0.7-1.2) 06/14/16 13:29 Est GFR ( Amer) > 60 06/14/16 13:29 Est GFR (Non-Af Amer) > 60 06/14/16 13:29 POC Glucose (mg/dL) 106 mg/dL (65-110) 06/15/16 11:09 Random Glucose 103 mg/dL (65-105) 06/14/16 13:29 Calcium 9.0 mg/dl (8.6-10.4) 06/14/16 13:29 Phosphorus 2.6 mg/dL (2.5-4.5) 06/14/16 13:29 Magnesium 2.1 mg/dL (1.6-2.3) 06/14/16 13:29 Total Bilirubin 0.5 mg/dL (0.2-1.3) 06/14/16 13:29 AST 20 U/L (14-36) 06/14/16 13:29 ALT 16 U/L (9-52) 06/14/16 13:29 Alkaline Phosphatase 63 U/L (38-126) 06/14/16 13:29 NT-Pro-B Natriuret Pep 473 pg/mL (0-450) H 06/13/16 16:57 Total Protein 9.2 g/dL (6.3-8.3) H 06/14/16 13:29 Albumin 4.4 g/dL (3.5-5.0) 06/14/16 13:29 Globulin 4.8 gm/dL (2.2-3.9) H 06/14/16 13:29 Albumin/Globulin Ratio 0.9 (1.0-2.1) L 06/14/16 13:29 Lipase 244 U/L (23-300) 06/12/16 07:38 Urine Color Yellow (YELLOW) 06/12/16 07:54 Urine Clarity Hazy (Clear) 06/12/16 07:54 Urine pH 6.0 (5.0-8.0) 06/12/16 07:54 Ur Specific [place] 1.031 (1.003-1.030) H 06/12/16 07:54 Urine Protein 1+ mg/dL (NEGATIVE) H 06/12/16 07:54 Urine Glucose (UA) Normal mg/dL (Normal) 06/12/16 07:54 Urine Ketones 1+ mg/dL (NEGATIVE) H 06/12/16 07:54 Urine Blood Negative (NEGATIVE) 06/12/16 07:54 Urine Nitrate Negative (NEGATIVE) 06/12/16 07:54 Urine Bilirubin Negative (NEGATIVE) 06/12/16 07:54 Urine Urobilinogen Normal mg/dL (0.2-1.0) 06/12/16 07:54 Ur Leukocyte Esterase Neg [place]/uL (Negative) 06/12/16 07:54 Urine WBC (Auto) < 1 /hpf (0-5) 06/12/16 07:54 Urine RBC (Auto) 2 /hpf (0-3) 06/12/16 07:54 Ur Squamous Epith Cells 11 /hpf (0-5) H 06/12/16 07:54 Urine HCG, Qual Negative (NEGATIVE) 06/13/16 19:01 Urine Opiates Screen Negative (NEGATIVE) 06/12/16 07:54 Urine Methadone Screen Negative (NEGATIVE) 06/12/16 07:54 Ur Barbiturates Screen Negative (NEGATIVE) 06/12/16 07:54 Ur Phencyclidine Scrn Negative (NEGATIVE) 06/12/16 07:54 Ur Amphetamines Screen Negative (NEGATIVE) 06/12/16 07:54 U Benzodiazepines Scrn Negative (NEGATIVE) 06/12/16 07:54 U Oth Cocaine Metabols Positive (NEGATIVE) 06/12/16 07:54 U Cannabinoids Screen Positive (NEGATIVE) 06/12/16 07:54 Alcohol, Quantitative < 10 mg/dl (0-10) 06/12/16 07:38 Hepatitis A IgM Ab Negative (NEGATIVE) 06/13/16 07:04 Hep Bs Antigen Negative (NEGATIVE) 06/13/16 07:04 Hep B Core IgM Ab Negative (NEGATIVE) 06/13/16 07:04 Hepatitis C Antibody Negative (NEGATIVE) 06/13/16 07:04 - Hospital Course Hospital Course: Upon hospital admission: Patient is a 35 year old female with no significant medical history is coming to the hospital after vomiting several times for the past 2 days. She was seen in the ED yesterday and discharged home. Patient reports her symptoms did not improve. She has not been able to eat or drink anything for the past few days. She reports feeling hot and cold sensation as well as generalized weakness. Patient denies sick contacts or any recent travel. She does report eating some spicy food from her neighbor about 3 days ago and started vomiting the next morning. She denies weight loss, chest pain, shortness of breath, cough, diarrhea, constipation, dysuria. PSH: denies FH: Mother heart disease SH: smokes several cigarettes a day, snorts cocaine, smokes marjiuana several times a day, social etoh use allergies: NKDA PMD: none During hospital course, the patient was evaluated and treated for the following : (1) Hyperemesis Assessment and Plan: clear liquid diet cbc, cmp, mag, phos, hepatitis panel - negative Lipase normal Abdominal US shows evidence of liver disease. UDS + for cannibus and cocaine BNP slightly elevated at 473 Reglan before meals Zofran prn (2) Hypokalemia Assessment and Plan: 02/12 Potassium is 3.4, given 40meq with bag of D5 Normal saline. 02/13 Potassium is 3.4, given 20meq K-dur 20 02/14 Potassium is 3.5 (3) Hypertension start on HERBERTH/ARB (4) Prophylactic measure Assessment and Plan: Protonix 40mg IVP Lovenox SCDs Upon hospital discharge, the patient was provided with the following instructions: Patient is stable for discharge per Dr. Keenan. Patient should take the new medications listed below (scripts provided). 1. Please make an appointment and follow up with Primary Doctor within one week of discharge. If patient does not have a Primary Doctor, please follow up with [facility] to establish medical care, at [phone]. 2. Due to your history of cocain use, if you are ever on Blood pressure medication, please ensure you do not take a beta-ramirez. Patient should return to ED immediately if symptoms return or worsen. Instructions discussed with patient who understood and agreed. Newly prescribed medications: Reglan 10mg PO Q8H PRN, nausea #10 This is a summary of the patient's hospital admission, see chart for comprehensive detail. - Date & Time of H&P Date of H&P: 06/12/16 Time of H&P: 12:22 Discharge Exam - Additional Findings Additional findings: - Constitutional Appears: Non-toxic, No Acute Distress - Head Exam Head Exam: ATRAUMATIC, NORMOCEPHALIC - Eye Exam Eye Exam: EOMI - ENT Exam ENT Exam: Mucous Membranes Moist, Normal Exam - Neck Exam Neck Exam: Normal Inspection - Respiratory Exam Respiratory Exam: Clear to Ausculation Bilateral, NORMAL BREATHING PATTERN - Cardiovascular Exam Cardiovascular Exam: REGULAR RHYTHM, RRR, +S1, +S2. absent: JVD - GI/Abdominal Exam GI & Abdominal Exam: Soft, Tenderness, Normal Bowel Sounds - Neurological Exam Neurological Exam: Alert, Awake, Oriented x3 - Psychiatric Exam Psychiatric exam: Normal Affect, Normal Mood - Skin Skin Exam: Dry, Intact, Normal Color, Warm Discharge Plan - Discharge Medications Prescriptions: Metoclopramide [Reglan] 10 mg PO Q8H PRN #10 tab PRN Reason: Nausea/Vomiting - Follow Up Plan Condition: GUARDED Disposition: HOME/ ROUTINE Instructions: How to Stop Smoking (DC), Hypokalemia (DC), Hypokalemia (GEN), Cigarette Smoking and Your Health (GEN), Acute Nausea and Vomiting (DC), Acute Nausea and Vomiting (GEN), Acute Abdominal Pain (DC), Acute Abdominal Pain (GEN) Additional Instructions: Patient is stable for discharge per Dr. Keenan. Patient should take the new medications listed below (scripts provided). 1. Please make an appointment and follow up with Primary Doctor within one week of discharge. If patient does not have a Primary Doctor, please follow up with [facility] to establish medical care, at [phone]. 2. Due to your history of cocain use, if you are ever on Blood pressure medication, please ensure you do not take a beta-ramirez. Patient should return to ED immediately if symptoms return or worsen. Instructions discussed with patient who understood and agreed. Newly prescribed medications: Reglan 10mg PO Q8H PRN, nausea #10 <Gurjit Keenan - Last Filed: 06/15/16 20:48> Provider - Provider Date of Admission: 06/14/16 11:21 Attending physician: Gurjit Keenan MD Hospital Course - Lab Results Lab Results: Most Recent Lab Values WBC 8.1 K/uL (4.8-10.8) 06/14/16 13:29 RBC 4.68 Mil/uL (3.80-5.20) 06/14/16 13:29 Hgb 15.2 g/dL (11.0-16.0) D 06/14/16 13:29 Hct 45.2 % (34.0-47.0) 06/14/16 13:29 MCV 96.5 fL (81.0-99.0) 06/14/16 13:29 MCH 32.5 pg (27.0-31.0) H 06/14/16 13:29 MCHC 33.7 g/dL (33.0-37.0) 06/14/16 13:29 RDW 13.3 % (11.5-14.5) 06/14/16 13:29 Plt Count 210 K/uL (130-400) 06/14/16 13:29 MPV 10.0 fL (7.2-11.7) 06/14/16 13:29 Neut % (Auto) 66.3 % (50.0-75.0) 06/14/16 13:29 Lymph % (Auto) 25.2 % (20.0-40.0) 06/14/16 13:29 Clinch % (Auto) 8.1 % (0.0-10.0) 06/14/16 13:29 Eos % (Auto) 0.0 % (0.0-4.0) 06/14/16 13:29 Baso % (Auto) 0.4 % (0.0-2.0) 06/14/16 13:29 Neut # 5.4 K/uL (1.8-7.0) 06/14/16 13:29 Lymph # 2.0 K/uL (1.0-4.3) 06/14/16 13:29 Clinch # 0.7 K/uL (0.0-0.8) 06/14/16 13:29 Eos # 0.0 K/uL (0.0-0.7) 06/14/16 13:29 Baso # 0.0 K/uL (0.0-0.2) 06/14/16 13:29 Sodium 134 mmol/L (132-148) 06/14/16 13:29 Potassium 3.5 mmol/L (3.6-5.2) L 06/14/16 13:29 Chloride 93 mmol/L (98-107) L 06/14/16 13:29 Carbon Dioxide 26 mmol/L (22-30) 06/14/16 13:29 Anion Gap 19 (10-20) 06/14/16 13:29 BUN 7 mg/dL (7-17) 06/14/16 13:29 Creatinine 0.7 MG/DL (0.7-1.2) 06/14/16 13:29 Est GFR ( Amer) > 60 06/14/16 13:29 Est GFR (Non-Af Amer) > 60 06/14/16 13:29 POC Glucose (mg/dL) 106 mg/dL (65-110) 06/15/16 11:09 Random Glucose 103 mg/dL (65-105) 06/14/16 13:29 Calcium 9.0 mg/dl (8.6-10.4) 06/14/16 13:29 Phosphorus 2.6 mg/dL (2.5-4.5) 06/14/16 13:29 Magnesium 2.1 mg/dL (1.6-2.3) 06/14/16 13:29 Total Bilirubin 0.5 mg/dL (0.2-1.3) 06/14/16 13:29 AST 20 U/L (14-36) 06/14/16 13:29 ALT 16 U/L (9-52) 06/14/16 13:29 Alkaline Phosphatase 63 U/L (38-126) 06/14/16 13:29 NT-Pro-B Natriuret Pep 473 pg/mL (0-450) H 06/13/16 16:57 Total Protein 9.2 g/dL (6.3-8.3) H 06/14/16 13:29 Albumin 4.4 g/dL (3.5-5.0) 06/14/16 13:29 Globulin 4.8 gm/dL (2.2-3.9) H 06/14/16 13:29 Albumin/Globulin Ratio 0.9 (1.0-2.1) L 06/14/16 13:29 Lipase 244 U/L (23-300) 06/12/16 07:38 Urine Color Yellow (YELLOW) 06/12/16 07:54 Urine Clarity Hazy (Clear) 06/12/16 07:54 Urine pH 6.0 (5.0-8.0) 06/12/16 07:54 Ur Specific [place] 1.031 (1.003-1.030) H 06/12/16 07:54 Urine Protein 1+ mg/dL (NEGATIVE) H 06/12/16 07:54 Urine Glucose (UA) Normal mg/dL (Normal) 06/12/16 07:54 Urine Ketones 1+ mg/dL (NEGATIVE) H 06/12/16 07:54 Urine Blood Negative (NEGATIVE) 06/12/16 07:54 Urine Nitrate Negative (NEGATIVE) 06/12/16 07:54 Urine Bilirubin Negative (NEGATIVE) 06/12/16 07:54 Urine Urobilinogen Normal mg/dL (0.2-1.0) 06/12/16 07:54 Ur Leukocyte Esterase Neg [place]/uL (Negative) 06/12/16 07:54 Urine WBC (Auto) < 1 /hpf (0-5) 06/12/16 07:54 Urine RBC (Auto) 2 /hpf (0-3) 06/12/16 07:54 Ur Squamous Epith Cells 11 /hpf (0-5) H 06/12/16 07:54 Urine HCG, Qual Negative (NEGATIVE) 06/13/16 19:01 Urine Opiates Screen Negative (NEGATIVE) 06/12/16 07:54 Urine Methadone Screen Negative (NEGATIVE) 06/12/16 07:54 Ur Barbiturates Screen Negative (NEGATIVE) 06/12/16 07:54 Ur Phencyclidine Scrn Negative (NEGATIVE) 06/12/16 07:54 Ur Amphetamines Screen Negative (NEGATIVE) 06/12/16 07:54 U Benzodiazepines Scrn Negative (NEGATIVE) 06/12/16 07:54 U Oth Cocaine Metabols Positive (NEGATIVE) 06/12/16 07:54 U Cannabinoids Screen Positive (NEGATIVE) 06/12/16 07:54 Alcohol, Quantitative < 10 mg/dl (0-10) 06/12/16 07:38 Hepatitis A IgM Ab Negative (NEGATIVE) 06/13/16 07:04 Hep Bs Antigen Negative (NEGATIVE) 06/13/16 07:04 Hep B Core IgM Ab Negative (NEGATIVE) 06/13/16 07:04 Hepatitis C Antibody Negative (NEGATIVE) 06/13/16 07:04 Attending/Attestation - Attestation I have personally seen and examined this patient.: Yes I have fully participated in the care of the patient.: Yes I have reviewed all pertinent clinical information, including history, physical exam and plan: Yes Notes (Text): Patient with history of cocaine abuse, previous ETOH abuse, admitted with persistent vomiting; Improved gradually, today tolerating diet well; symptoms likely due to transient gastroenteritis; HTN improved spontaneously; was possibly due to an adrenergic/renin dependent response in the setting of vomiting; will not discharge on an anti-htn meds as BP close to target today; advised that she needs outpatient f/u; Patient counseled on harms of cocaine use; agrees to completely abstain from it; Patient is medically stable for d/c home and should f/u with pmd in 7-10 days. 06/15/16 20:40
== END 2016-06-15 12:28 | disposition home or self-care (01) | DRG 813 ==
LOC: C.ER 07:16 → C.9E 11:27 → C.3T 21:34 → OBSVTOIN 06-14 11:21
PROVIDERS: ADMIT Internal Medicine Nephrology; ATTEND Internal Medicine Nephrology
DX: R11.10 Vomiting, unspecified (principal); E87.6 Hypokalemia; F14.10 Cocaine abuse, uncomplicated; I10 Essential (primary) hypertension; F12.10 Cannabis abuse, uncomplicated; F17.210 Nicotine dependence, cigarettes, uncomplicated

== ENCOUNTER 2016-10-11 00:19 | Emergency (ER) | payer MEDICAID, OTHER ==
[2016-10-11 00:25] VITALS: TEMP 98
[2016-10-11] MEDS ORDERED: Sodium Chloride 0.9% 1,000 ML IV STA ×2 (01:18→02:29)
[2016-10-11 01:37] LABS: BASO # 0.1 K/uL (0.0-0.2); EOS % 0.1 % (0.0-4.0); HEMOGLOBIN 15.8 g/dL (11.0-16.0); LYMPH # 1.2 K/uL (1.0-4.3); LYMPH % 18.1 % (20.0-40.0); MEAN CELL VOLUME 96.8 fL (81.0-99.0); MEAN CORPUSCULAR HEMOGLOBIN 32.4 pg (27.0-31.0); MEAN CORPUSCULAR HGB CONC 33.5 g/dL (33.0-37.0); MEAN PLATELET VOLUME 10.4 fL (7.2-11.7); MONO # 0.6 K/uL (0.0-0.8); MONO % 8.4 % (0.0-10.0); NEUT # 4.8 K/uL (1.8-7.0); NEUT % 71.4 % (50.0-75.0); NRBC % 0.1 % (0.0-2.0); RBC 4.89 Mil/uL (3.80-5.20); RED CELL DISTRIBUTION WIDTH 13.4 % (11.5-14.5); WHITE BLOOD COUNT 6.8 K/uL (4.8-10.8)
[2016-10-11 02:12] LABS: ALBUMIN 4.6 g/dL (3.5-5.0)
[2016-10-11 02:15] LABS: ALB/GLOB RATIO 0.8 (1.0-2.1); AST/SGOT 29 U/L (14-36); BLOOD UREA NITROGEN 16 mg/dL (7-17); GFR AFRICAN-AMERICAN > 60; GFR NON-AFRICAN AMERICAN > 60
[2016-10-11 02:16] LABS: ALT/SGPT 18 U/L (9-52); CALCIUM 9.6 mg/dl (8.6-10.4); LIPASE 227 U/L (23-300)
--- NOTE | 2016-10-11 03:39 | C.PDOC ---
History Of Present Illness 36 year old female who presents to the ER with a complaint of vomiting since drinking ETOH 3 days ago. Patient also complaints of mild epigastric tenderness ; denies fever or chills. Time Seen by Provider: 10/11/16 00:52 Chief Complaint (Nursing): Abdominal Pain History Per: Patient History/Exam Limitations: no limitations Onset/Duration Of Symptoms: Days Current Symptoms Are (Timing): Still Present Location Of Pain/Discomfort: Epigastric Radiation Of Pain To:: None Quality Of Discomfort: Unable To Describe Associated Symptoms: Vomiting. denies: Fever, Chills, Urinary Symptoms Exacerbating Factors: None Alleviating Factors: None Recent travel outside of the [place]: No Abnormal Vaginal Bleeding: No Past Medical History Reviewed: Historical Data, Nursing Documentation, Vital Signs Vital Signs: Last Vital Signs Temp 98.0 F 10/11/16 00:21 Pulse 60 10/11/16 05:21 Resp 17 10/11/16 05:21 BP 116/74 10/11/16 05:21 Pulse Ox 99 10/11/16 05:21 - Medical History PMH: HTN Surgical History: No Surg Hx Family History: States: Unknown Family Hx - Social History Hx Tobacco Use: Yes (heavy smoker) Hx Alcohol Use: Yes (socially) Hx Substance Use: Yes - Immunization History Hx Tetanus Toxoid Vaccination: No Hx Influenza Vaccination: No Hx Pneumococcal Vaccination: No Review Of Systems Constitutional: Negative for: Fever, Chills Gastrointestinal: Positive for: Vomiting, Abdominal Pain Physical Exam - Physical Exam Appears: Non-toxic Skin: Normal Color, Warm, Dry Head: Atraumatic, Normacephalic Oral Mucosa: Moist Chest: Symmetrical, No Tenderness Cardiovascular: Rhythm Regular, No Murmur Respiratory: Normal Breath Sounds, No Rales, No Rhonchi, No Wheezing Gastrointestinal/Abdominal: Soft, Tenderness (Mild epigastric) Neurological/Psych: Oriented x3, Normal Speech, Normal Cognition ED Course And Treatment - Laboratory Results Result Diagrams: 10/11/16 01:34 10/11/16 01:34 O2 Sat by Pulse Oximetry: 95 (Room air) Pulse Ox Interpretation: Normal Progress Note: Urinalysis and blood work ordered. Pepcid and IV fluids administered. Patient will be PO challenged. On re-evaluation patient feels better, tolerates po and is stable to be d/c home. Disposition - Disposition Disposition: HOME/ ROUTINE Disposition Time: 05:11 Condition: IMPROVED Additional Instructions: Follow up with your PMD within 1-2 days. Return to ED if feel worse. Prescriptions: Famotidine [Pepcid] 20 mg PO BID #20 tab Ondansetron ODT [Zofran ODT] 4 mg PO .Q4-6H PRN #20 odt PRN Reason: Nausea/Vomiting Instructions: Gastritis (ED), Acute Nausea and Vomiting (ED) - Clinical Impression Clinical Impression: Alcoholic gastritis - Scribe Statement The provider has reviewed the documentation as recorded by the Scribprudencio Pretty All medical record entries made by the Luceroibprudencio were at my direction and personally dictated by me. I have reviewed the chart and agree that the record accurately reflects my personal performance of the history, physical exam, medical decision making, and the department course for this patient. I have also personally directed, reviewed, and agree with the discharge instructions and disposition.
[2016-10-11 03:51] LABS: HCG,QUALITATIVE URINE NEGATIVE (NEGATIVE)
[2016-10-11 03:59] LABS: SQUAMOUS EPITHIAL 9 /hpf (0-5); URINE BACTERIA RARE (<OCC); URINE BILIRUBIN NEGATIVE (NEGATIVE); URINE BLOOD NEGATIVE (NEGATIVE); URINE CLARITY Hazy (Clear); URINE COLOR Yellow (YELLOW); URINE GLUCOSE (UA) NORMAL (Normal); URINE LEUKOCYTE ESTERASE TRACE Leu/uL (Negative); URINE NITRATE NEGATIVE (NEGATIVE); URINE PROTEIN NEGATIVE (NEGATIVE); URINE UROBILINOGEN NORMAL mg/dL (0.2-1.0)
[2016-10-11 04:00] LABS: BARBITURATES, UR NEGATIVE (NEGATIVE)
[2016-10-11 04:01] LABS: BENZODIAZEPINES, UR NEGATIVE (NEGATIVE)
[2016-10-11 04:04] LABS: OPIATES, UR NEGATIVE (NEGATIVE)
[2016-10-11 04:05] LABS: PHENCYCLIDINE, UR NEGATIVE (NEGATIVE)
[2016-10-11 05:22] VITALS: BP 116/74; PULSE 60; RESP 17
[2016-10-11 05:31] VITALS: O2SAT 95
== END 2016-10-11 05:21 | disposition home or self-care (01) ==
LOC: C.ER 00:19
DX: K29.20 Alcoholic gastritis without bleeding (principal)
CPT/HCPCS: 80053; 80324; 80345; 80346; 80349; 80353; 80358; 80361; 81001; 83690; 83992; 84703; 85025; 96361; 96374; 96375; 99284; J2405; J7040

== ENCOUNTER 2016-10-12 00:02 | Emergency (ER) | payer MEDICAID, OTHER ==
[2016-10-12] MEDS ORDERED: Sodium Chloride 0.9% 1,000 ML IV ONE (00:27)
[2016-10-12] MEDS ORDERED: Iohexol 240 (50 ml) PO STA (00:27)
[2016-10-12] MEDS ORDERED: Iohexol 240 (50 ml) ONE (00:35)
[2016-10-12] MEDS ORDERED: Sodium Chloride 0.9% 1,000 ML ONE (00:36)
[2016-10-12 01:19] LABS: BASO % 0.6 % (0.0-2.0); LYMPH # 1.8 K/uL (1.0-4.3); LYMPH % 23.8 % (20.0-40.0); MEAN CELL VOLUME 96.7 fL (81.0-99.0); MEAN CORPUSCULAR HEMOGLOBIN 32.1 pg (27.0-31.0); MEAN CORPUSCULAR HGB CONC 33.2 g/dL (33.0-37.0); MONO # 0.8 K/uL (0.0-0.8); MONO % 10.5 % (0.0-10.0); NEUT # 4.8 K/uL (1.8-7.0); NEUT % 65.1 % (50.0-75.0); RBC 4.29 Mil/uL (3.80-5.20); WHITE BLOOD COUNT 7.4 K/uL (4.8-10.8)
[2016-10-12 01:23] LABS: HEMOGLOBIN 13.8 g/dL (11.0-16.0)
[2016-10-12 01:25] LABS: AST/SGOT 18 U/L (14-36); GFR AFRICAN-AMERICAN > 60; GFR NON-AFRICAN AMERICAN > 60
[2016-10-12 01:26] LABS: ALT/SGPT 23 U/L (9-52); BLOOD UREA NITROGEN 11 mg/dL (7-17); LIPASE 223 U/L (23-300)
[2016-10-12 01:32] LABS: SQUAMOUS EPITHIAL 19 /hpf (0-5); URINE BILIRUBIN NEGATIVE (NEGATIVE); URINE BLOOD NEGATIVE (NEGATIVE); URINE CLARITY Hazy (Clear); URINE COLOR Yellow (YELLOW); URINE GLUCOSE (UA) NORMAL (Normal); URINE NITRATE NEGATIVE (NEGATIVE); URINE PROTEIN NEGATIVE (NEGATIVE)
[2016-10-12 01:36] LABS: HCG,QUALITATIVE URINE NEGATIVE (NEGATIVE)
[2016-10-12 01:48] LABS: URINE LEUKOCYTE ESTERASE TRACE Leu/uL (Negative)
[2016-10-12] MEDS ORDERED: Iodixanol 320 MG/ML 100 ML BOTTLE IV ONE (04:07)
--- NOTE | 2016-10-12 05:15 | CT ---
EXAM: CT Abdomen and Pelvis With Intravenous Contrast CLINICAL HISTORY: 36 years old, female; Pain and signs and symptoms; Vomiting; Abdominal pain; Generalized; Additional info: Abd pain, vomiting TECHNIQUE: Axial computed tomography images of the abdomen and pelvis with intravenous contrast. This CT exam was performed using one or more of the following dose reduction techniques: automated exposure control, adjustment of the mA and/or kV according to patient size, and/or use of iterative reconstruction technique. Coronal and sagittal reformatted images were created and reviewed. CONTRAST: 100 mL of [id number] administered intravenously. EXAM DATE/TIME: 10/12/2016 12:28 AM COMPARISON: No relevant prior studies available. FINDINGS: LOWER THORAX: No infiltrate seen in the lung bases. ABDOMEN: LIVER: No acute abnormality of the liver identified. GALLBLADDER AND BILE DUCTS: No CT evidence of acute cholecystitis. No evidence of significant biliary ductal dilatation. PANCREAS: No CT evidence of acute pancreatitis. SPLEEN: No acute abnormality of the spleen identified. ADRENALS: No acute abnormality of the adrenal glands identified. KIDNEYS AND URETERS: No acute abnormality of the kidneys identified. No evidence of significant hydrouereteronephrosis. STOMACH AND BOWEL: Mild wall thickening of the distal stomach This could represent pseudo-wall thickening due to underdistention/incomplete distension versus focal gastritis. Otherwise, no significant abnormality of the bowel is identified. No evidence of bowel obstruction.No evidence of diverticulitis. APPENDIX: Appendix is seen, and is within normal limits in appearance. PELVIS: BLADDER: Diffuse, mild to moderate bladder wall thickening. REPRODUCTIVE:No acute abnormality of the reproductive organs is seen. No acute abnormality of the uterus identified. No evidence of large adnexal masses. ABDOMEN and PELVIS: INTRAPERITONEAL SPACE: No evidence of free intraperitoneal air or fluid. BONES/JOINTS: No acute fractures or other acute bony abnormality noted. SOFT TISSUES: No acute abnormality of the visualized soft tissues is seen. VASCULATURE: No evidence of abdominal aortic aneurysm. No evidence of periaortic hemorrhage. LYMPH NODES: No evidence of diffuse lymphadenopathy. IMPRESSION: - Bladder wall thickening. This is a nonspecific finding, but can be seen with cystitis. Recommend clinical correlation. - Underdistention versus wall thickening/focal gastritis involving the distal stomach. Recommend clinical correlation. - Otherwise, no evidence of significant acute process. No evidence of bowel obstruction. - See above for remaining findings.
--- NOTE | 2016-10-12 05:30 | C.PDOC ---
Time Seen by Provider: 10/12/16 00:21 Chief Complaint (Nursing): Abdominal Pain History Per: Patient Onset/Duration Of Symptoms: Days (few) Current Symptoms Are (Timing): Still Present Severity: Moderate Location Of Pain/Discomfort: Diffuse, Epigastric Radiation Of Pain To:: None Quality Of Discomfort: Unable To Describe, "Pain" Associated Symptoms: Nausea, Vomiting Exacerbating Factors: Food Alleviating Factors: None Last Bowel Movement: Today Additional History Per: Prior Records Past Medical History Reviewed: Historical Data, Nursing Documentation, Vital Signs Vital Signs: Last Vital Signs Temp 98.3 F 10/12/16 04:58 Pulse 59 L 10/12/16 04:58 Resp 18 10/12/16 04:58 BP 159/88 H 10/12/16 04:58 Pulse Ox 100 10/12/16 04:58 - Medical History PMH: Gastritis, HTN Surgical History: No Surg Hx Family History: States: Unknown Family Hx - Social History Hx Tobacco Use: Yes (heavy smoker) Hx Alcohol Use: Yes (socially) Hx Substance Use: Yes - Immunization History Hx Tetanus Toxoid Vaccination: No Hx Influenza Vaccination: No Hx Pneumococcal Vaccination: No Review Of Systems Except As Marked, All Systems Reviewed And Found Negative. Constitutional: Negative for: Fever, Weakness Cardiovascular: Negative for: Chest Pain Respiratory: Negative for: Shortness of Breath Gastrointestinal: Positive for: Nausea, Vomiting, Abdominal Pain. Negative for : Diarrhea, Melena, Hematochezia, Hematemesis Genitourinary: Negative for: Dysuria Musculoskeletal: Negative for: Neck Pain, Back Pain Skin: Negative for: Rash Neurological: Negative for: Weakness, Numbness, Seizures, Altered Mental Status Physical Exam - Physical Exam Appears: Non-toxic, No Acute Distress Skin: Normal Color, Warm, Dry, No Rash Head: Atraumatic, Normacephalic Eye(s): bilateral: Normal Inspection, PERRL, EOMI Neck: Normal ROM, Supple Cardiovascular: Rhythm Regular Respiratory: Normal Breath Sounds, No Accessory Muscle Use Gastrointestinal/Abdominal: Soft, Tenderness (epigastric) Back: No CVA Tenderness Extremity: Normal ROM Neurological/Psych: Oriented x3, Normal Motor, Normal Sensation ED Course And Treatment - Laboratory Results Result Diagrams: 10/12/16 01:04 10/12/16 01:04 Interpretation Of Abnormal: Hypokalemia. Urine POC: Negative O2 Sat by Pulse Oximetry: 100 Pulse Ox Interpretation: Normal - CT Scan/US CT abd/pelv. Other Rad Studies (CT/US): Read By Radiologist, Radiology Report Reviewed CT/US Interpretation: IMPRESSION: - Bladder wall thickening. This is a nonspecific finding, but can be seen with. cystitis. Recommend clinical correlation. - Underdistention versus wall thickening/focal gastritis involving the distal. stomach. Recommend clinical correlation. - Otherwise, no evidence of significant acute process. No evidence of bowel. obstruction. - See above for remaining findings. Progress - Interventions Interventions:: Observation, Intravenous fluid - Medications Administered Intravenous: Antiemetic, H-2 ramirez - Data Reviewed Data Reviewed: Lab, Diagnostic imaging, Old records - Patient Status Patient status: Mostly improved - Continuity of Care Discussed patient case with:: Patient, ED Nurse - Patient Plan Patient Plan: Discharge, F/U with PCP Disposition Counseled Patient/Family Regarding: Studies Performed, Diagnosis, Need For Followup, Rx Given - Disposition Referrals: Onur Mcgee MD [Staff Provider] - Disposition: HOME/ ROUTINE Disposition Time: 05:31 Condition: IMPROVED Additional Instructions: Follow up with a primary doctor this week. Follow up with a [facility] within 1-2 weeks for further evaluation and treatment, including endoscopy. Return to the ER if you develop fever, vomiting, bloody or black stools, worsening of symptoms or if you have any other concerns. Prescriptions: Metoclopramide [Reglan] 1 tab PO TID PRN #15 tab PRN Reason: Nausea/Vomiting Pantoprazole Sodium [Protonix] 40 mg PO DAILY #14 ect Potassium Chloride [K-Tab ER] 20 meq PO DAILY #15 tablet.er Instructions: Gastritis (ED) - Clinical Impression Clinical Impression: Abdominal pain, Nausea & vomiting, Hypokalemia
[2016-10-12 05:56] VITALS: BP 155/81; PULSE 63; RESP 17; TEMP 97.9; O2SAT 99
== END 2016-10-12 06:07 | disposition home or self-care (01) ==
LOC: C.ER 00:02
DX: E87.6 Hypokalemia (principal); R11.2 Nausea with vomiting, unspecified; R10.13 Epigastric pain
CPT/HCPCS: 74177; 80053; 80320; 81001; 83605; 83690; 84703; 85025; 96361; 96374; 96375; 99285; C9113; J2765; J3480; J7040; Q9966; Q9967